=== PATIENT | male | born 1940 | race Caucasian/White ===

== ENCOUNTER 2024-09-04 16:11 | Emergency (ER) | payer OTHER ==
[~2024-09-04] VITALS: Ht 177.8 cm; Wt 74.2 kg
[~2024-09-04 16:11] MED LIST: FINA5TAB4 PO; HYDR12.59 PO; POTA-264 PO; RANI150C11 PO; TERA1CAP52 PO; [UNRECOGNIZED DRUG - CODE] PO; lozartan
--- NOTE | 2024-09-04 17:37 | ECG ---
[facility] Test Date: 2024-09-04 Test Time: 17:32:53 Pat Name: JEAN HORTON Department: ER Room: Gender: M Bit Setter: SENTHIL : 1940 Requested By: FRANK FERRARI Order Number: [id number] Reading MD: Landon Cameron Measurements Intervals [place] Rate: 51 P: 0 CO: 0 QRS: -74 QRSD: 182 T: 90 QT: 528 QTc: 487 Interpretive Statements AV dissociation Nonspecific IVCD with LAD LVH with secondary repolarization abnormality Electronically Signed On 09-05-2024 9:22:11 PDT by Landon Cameron Please click the below link to view image of tracing.
[2024-09-04 18:04] LABS: Basophils # (auto) 0.1 10 ^3/uL (0-0.2); Basophils % (auto) 1.1 % (0.0-2.0); Eosinophils # (auto) 0.1 10 ^3/uL (0-0.8); Eosinophils % (auto) 1.3 % (0.0-7.0); Hematocrit 37.6 % (41.0-53.0); Hemoglobin 12.5 g/dL (13.5-17.5); Lymphocytes # (auto) 1.1 10 ^3/uL (0.4-5.4); Lymphocytes % (auto) 25.1 % (10.0-50.0); Mean Corpuscular Hemoglobin 32.4 pg (28.0-32.0); Mean Corpuscular Hgb Conc. 33.3 g/dL (32.0-36.0); Mean Corpuscular Volume 97.4 fL (80.0-100.0); Monocytes # (auto) 0.3 10 ^3/uL (0-1.3); Monocytes % (auto) 6.8 % (0.0-12.0); Neutrophils % (auto) 65.7 % (37.0-80.0); Nucleated Red Blood Cells % 0.1 %; Platelet Count (auto) 200 10^3/uL (140-450); Red Blood Cells 3.86 10^6/uL (4.5-5.90); Red Cell Distribution Width 14.3 % (11.8-14.3); White Blood Cell 4.6 10^3/uL (4.4-10.8)
[2024-09-04 18:14] VITALS: BP 127/59; PULSE 66; RESP 18; TEMP 98.7; O2SAT 97
--- NOTE | 2024-09-04 18:18 | ED.PDOC ---
HPI Comments 83y M who presents to the ED for chief complaint of low blood pressure. - per pt , pt has been to urgent care at [facility] earlier this AM and was referred to the ED for evaluation for low blood pressure. They are not sure exactly what the blood pressure was at the clinic however his blood pressure is normal here in triage. - pt in the ED, after checking vitals has noted stable vitals with BP of 127/59 in the ED, - per pt , she noticed pt has been acting abnormal since 1430 today and has been not himself - pt in the ED, has noted history of dementia but states this behavior is baseline for pt according to spouse - pt states pt has been to urgent care 5x in the past for hypotensive episodes - pt in the ED, after evaluation, has no noted deficits noted PMH: HTN, dementia, BPH PSH: pacemaker allergies: denies medications: unknown social history: denies ETOH use, denies tobacco use, denies drug use HPI: Poor Historian. Past Medical History: Past Surgical History: REVIEW OF SYSTEMS: CONSTITUTIONAL: Denies acute: fever, diaphoresis, chills, HEAD: Denies acute: headache, photophobia Eyes: Denies acute: Double vision, vision loss, eye pain, eye discharge. EARS: Denies acute: tinnitus, hearing loss, ear discharge, ear pain, THROAT: Denies acute: sore throat, swelling, difficulty swallowing , pain with swallowing, change in voice. NECK: Denies acute: neck pain, neck swelling, stiff neck. HEART: Denies acute : chest pain, palpitations, LUNGS: Denies acute: SOB, wheezing, cough, hemoptysis ABDOMEN: Denies acute: abdominal pain, Nausea, Vomiting, diarrhea, melena , hematemesis, hematochezia SKIN: Denies acute: rash, redness, lesions, itchiness. EXTREMITIES: Denies acute: calf pain, numbness, tingling, weakness, denies pain in extremity. Denies acute: Low back pain. Neuro: Denies acute: focal neurological deficit, motor or sensory focal neurological deficit, tremors, seizure like activity, confusion, dizziness, change in mental status, loss of bowel or bladder function, cauda equina like symptoms. : Denies acute: dysuria, hematuria, flank pain, increase in urinary frequency. PSYCH: Denies acute: hallucination, suicidal ideation, homicidal ideation. PHYSICAL EXAM: General: -----no---acute distress, awake and alert. Head: normocephalic, atraumatic. Neck: supple, trachea is midline, no swelling. Throat: Normal phonation. Eyes:, no erythema, no purulent discharge, no proptosis, no icterus. Heart: regular rate, regular rhythm, no significant murmur appreciated. Lungs: no apparent respiratory distress, Able to speak in full sentences. No wheezing, no rhonchi, no crackles. No stridors Clear to auscultation bilaterally. Abdomen: non tender to palpation, non distended, soft, no guarding, no rebound, + bowel sounds. Neuro: Awake, Alert, oriented to name, self, situation, follows commands at b aseline dementia GCS=15. At baseline dementia Speech is normal. Skin: no petechia, no purpura, no cyanosis, non-pale, not jaundice. Lower extremities: --no - Pitting edema no deformity, no focal swelling, no calf TTP. Makes eye contact. moves all four extremities. Face: no apparent facial droop. Stroke: finger to nose cerebellar testing is intact. No pronator drift. Symmetrical painter helper spray muscle strength b/l PERRLA, EOM-I CN 2-12 are grossly intact, No nystagmus. No nuchal rigidity, Kernig's sign, Brudzinski's sign, no meningeal signs. ED COURSE: Chief Complaint: Low Blood Pressure Time Seen by MD: 18:17 Primary Care Provider: Jaylen Reviewed Notes: Medications, Allergies Allergies: Coded Allergies: NO KNOWN ALLERGIES (Unverified , 05/11/13) Home Meds Reported Medications Terazosin Hcl (Terazosin Hcl) 1 Mg Cap, 1 MG PO, CAP 05/11/13 Finasteride (Finasteride) 5 Mg Tab, 5 MG PO, TAB 05/11/13 [lozartan] No Conflict Check 05/11/13 Potassium Chloride (K-Tabs) 10 Meq Tab, 10 MEQ PO, TAB 05/11/13 Hydrochlorothiazide (Hydrochlorothiazide) 12.5 Mg Cap, 12.5 MG PO, CAP 05/11/13 Ranitidine Hcl (Ranitidine Hcl) 150 Mg Cap, 150 MG PO, CAP 05/11/13 Ergocalciferol (Ergocalciferol) 8,000 Mg/Ml Laura, 8000 MG PO 05/11/13 Information Source: Patient, Spouse Mode of Arrival: Wheelchair Brought in by: spouse Past Medical History PAST MEDICAL HISTORY: Cancer, GERD, HTN Family History Family History: No family hx of Cancer, No family hx of Heart nayana Social History Smoker: Non-Smoker Alcohol: Occasionally Drugs: Denies Drug Use Lives In: Home Was a procedure done? Was a procedure done?: No CP Differential Dx Differential Diagnosis: Other (Includes but not limited to thyroid disease, encephalopathy, electrolyte abnormality, sepsis, infection, intracranial pathology, drug adverse effects, arrhythmia, kidney insufficiency, ACS, CVA, malignancy, anemia), N/A X-Ray, Labs, Meds, VS Vital Signs Date Time Temp Pulse Resp B/P (MAP) Pulse Ox O2 Delivery O2 Flow Rate FiO2 09/04/24 18:14 98.7 66 18 127/59 (81) 97 98.7 09/04/24 17:32 51 Lab Test 09/04/24 17:52 09/04/24 17:36 Range/Units White Blood Count 4.6 4.4-10.8 10^3/uL Red Blood Count 3.86 L 4.5-5.90 10^6/uL Hemoglobin 12.5 L 13.5-17.5 g/dL Hematocrit 37.6 L 41.0-53.0 % Mean Corpuscular Volume 97.4 80.0-100.0 fL Mean Corpuscular Hemoglobin 32.4 H 28.0-32.0 pg Mean Corpuscular Hemoglobin Concent 33.3 32.0-36.0 g/dL Red Cell Distribution Width 14.3 11.8-14.3 % Platelet Count 200 140-450 10^3/uL Mean Platelet Volume 7.3 6.9-10.8 fL Neutrophils (%) (Auto) 65.7 37.0-80.0 % Lymphocytes (%) (Auto) 25.1 10.0-50.0 % Monocytes (%) (Auto) 6.8 0.0-12.0 % Eosinophils (%) (Auto) 1.3 0.0-7.0 % Basophils (%) (Auto) 1.1 0.0-2.0 % Neutrophils # (Auto) 3.0 1.6-8.6 10 ^3/uL Lymphocytes # (Auto) 1.1 0.4-5.4 10 ^3/uL Monocytes # (Auto) 0.3 0-1.3 10 ^3/uL Eosinophils # (Auto) 0.1 0-0.8 10 ^3/uL Basophils # (Auto) 0.1 0-0.2 10 ^3/uL Nucleated Red Blood Cells 0.1 % Sodium Level 142 136-145 mmol/L Potassium Level 4.5 3.5-5.1 mmol/L Chloride Level 104 98-107 mmol/L Carbon Dioxide Level 30 20-31 mmol/L Anion Gap 8 5-15 Blood Urea Nitrogen 20 9-23 mg/dL Creatinine 1.00 0.700-1.30 mg/dL Glomerular Filtration Rate Calc 74 >90 mL/min BUN/Creatinine Ratio 20.0 10.0-20.0 Serum Glucose 103 74-106 mg/dL Lactic Acid Level 1.5 0.4-2.0 mmol/L Calcium Level 10.0 8.7-10.4 mg/dL Magnesium Level 2.1 1.6-2.6 mg/dL Total Bilirubin 1.3 H 0.2-1.0 mg/dL Aspartate Amino Transferase (AST) 29 13-40 U/L Alanine Aminotransferase (ALT) 21 7-40 U/L Alkaline Phosphatase 79 46-116 U/L Troponin I High Sensitivity 6 </=54 ng/L Total Protein 7.1 5.7-8.2 g/dL Albumin 4.5 3.2-4.8 g/dL POC Glucose 102 70-106 mg/dl [place] [address] Ph: [phone] DIAGNOSTIC IMAGING Diagnostic Imaging Report : [id number] Signed PATIENT: JEAN HORTON ACCT: [id number] UNIT: [id number] : 1940 LOC: ER ROOM / BED: / AGE / SEX: 83 / M ADM STATUS: REG ER SERVICE [id number] ORDERING PHYSICIAN: FRANK FERRARI DO PROCEDURE(s): HWOCT - HEAD WITHOUT CONTRAST REASON: h/o Low BP, ORDER NUMBER(s): [id number], ACCESSION NUMBER(s): [id number] EXAM: CT HEAD WITHOUT CONTRAST INDICATION: h/o Low BP, TECHNIQUE: CT of the head without intravenous contrast. Radiation Dose Information: CT Dose: CTDI volume is 33.06 mGy. Dose-length product is 646.8 mGy*cm The dose indicators for CT are the volume Computed Tomography (CT) Dose Index (CTDIvol) and the Dose Length Product (DLP), and are measured in units of mGy a nd mGy-cm, respectively. These indicators are not patient dose, but values generated from the CT scanner acquisition factors. The report includes radiation exposure data for exposures received during this examination. COMPARISON: None FINDINGS: There is no evidence of acute intracranial hemorrhage, extra-axial collection, mass effect, midline shift, herniation or hydrocephalus. The ventricles, sulci and cisterns are age appropriate. The abdul-white differentiation is intact. Patchy periventricular and subcortical white matter hypoattenuation is nonspecific but may be related to small vessel ischemic disease. The visualized paranasal sinuses and mastoid air cells are clear. The surrounding soft tissues and osseous structures are unremarkable. IMPRESSION: 1. No acute intracranial hemorrhage 2. No CT findings of territorial ischemia. ATED BY: JUAN DIEGO ZAIDI Jr., DO DICTATED DATE/TIME: 09/04/241839 SIGNED BY: JUAN DIEGO ZAIDI Jr., SIGNED DATE/TIME: 09/04/241839 CC: [place] [id number] Ph: [phone] DIAGNOSTIC IMAGING Diagnostic Imaging Report : [id number] Signed PATIENT: JEAN HORTON ACCT: [id number] UNIT: [id number] : 1940 LOC: ER ROOM / BED: / AGE / SEX: 83 / M ADM STATUS: REG ER SERVICE [id number] ORDERING PHYSICIAN: FRANK FERRARI DO PROCEDURE(s): CXRP - CHEST PORTABLE REASON: h/o Low BP ORDER NUMBER(s): [id number], ACCESSION NUMBER(s): [id number] CHEST RADIOGRAPH Indication: h/o Low BP Technique: Single frontal view of the chest was obtained Comparison: None FINDINGS: Patient has a bipolar pacemaker with leads in the right atrium and right ventricle and normal position. Lungs are well expanded. Lung markings are suggestive of chronic changes. Heart size is unremarkable mediastinal contours are normal IMPRESSION: Possible chronic lung disease. Follow-up CT examination of the chest is suggested ATED BY: DANIS KUMARI MD DICTATED DATE/TIME: 09/04/241842 SIGNED BY: DANIS KUMARI MD SIGNED DATE/TIME: 09/04/241842 CC: Time of 1ST Reevaluation: 00:00 Reevaluation 1ST: Unchanged Patient Education/Counseling: Diagnosis, Treatment Family Education/Counseling: Diagnosis, Treatment Comments Patient presented with the above HPI.---hypotensive episode and altered mental status---workup was initiated. patient was found with the above mentioned diagnosis. the following medications were ordered: please refer to order lists of meds and tests obtained by myself Dr. Ferrari. Patient ED course and VS have been stabilized. Patient has been reassessed in the ED and remained in a stable condition. Pertinent incidental findings were discussed with the patient and/or family. Patient/family voices understanding and is agreeable with plan. Patient has been observed in the ED adequate length of time to insure improvement/stability. Escalation of care considered: Consideration of escalation to observation or admission Patient was ADMITTED to the medicine team for further evaluation and treatment of their presentation. However requested that did leave against medical advice. She said she will return to the ED of the need to. All the reports of any imaging studies that were ordered by myself were reviewed by myself. Departure 1 Departure Time of Disposition: 18:32 Impression: Primary Impression: Hypotensive episode Additional Impressions: Stroke-like symptoms Left against medical advice Disposition: 07 LEFT AGAINST MEDICAL ADVICE Condition: Stable Additional Instructions: Left against medical advice Discharged With: Self, Spouse Critical Care Note Critical Care Time?: Yes (35 min-critical care time only) Heart Score Heart Score: Heart Score Response (Comments) Value History Moderate Suspicious 1 EKG Normal 0 Age >65 2 Risk Factors 1 or 2 risk factors 1 Troponin Normal limit 0 Total 4 I personally scribed for FRANK FERRARI DO ([facility]) on 09/04/24 at 18:18. Electronically submitted by Yanick Briones ([facility] I personally scribed for FRANK FERRARI DO ([facility]) on 09/04/24 at 18:22. Electronically submitted by Yanick Briones ([facility]). I personally scribed for FRANK FERRARI DO ([facility]) on 09/04/24 at 21:06. Electronically submitted by Yanick Briones ([facility]). FRANK FERRARI DO September 04, 2024 18:18
[2024-09-04 18:21] LABS: Alanine Aminotransferase 21 U/L (7-40); Albumin 4.5 g/dL (3.2-4.8); Alkaline Phosphatase 79 U/L (46-116); Anion Gap 8 (5-15); Aspartate Aminotransferase 29 U/L (13-40); Blood Urea Nitrogen 20 mg/dL (9-23); Carbon Dioxide 30 mmol/L (20-31); Chloride 104 mmol/L (98-107); Glucose 103 mg/dL (74-106); Magnesium 2.1 mg/dL (1.6-2.6); Potassium 4.5 mmol/L (3.5-5.1); Sodium 142 mmol/L (136-145); Total Protein 7.1 g/dL (5.7-8.2)
[2024-09-04 18:22] LABS: Bilirubin, Total 1.3 mg/dL (0.2-1.0)
--- NOTE | 2024-09-04 18:43 | DVH ---
EXAM: CT HEAD WITHOUT CONTRAST INDICATION: h/o Low BP, TECHNIQUE: CT of the head without intravenous contrast. Radiation Dose Information: CT Dose: CTDI volume is 33.06 mGy. Dose-length product is 646.8 mGy*cm The dose indicators for CT are the volume Computed Tomography (CT) Dose Index (CTDIvol) and the Dose Length Product (DLP), and are measured in units of mGy and mGy-cm, respectively. These indicators are not patient dose, but values generated from the CT scanner acquisition factors. The report includes radiation exposure data for exposures received during this examination. COMPARISON: None FINDINGS: There is no evidence of acute intracranial hemorrhage, extra-axial collection, mass effect, midline s hift, herniation or hydrocephalus. The ventricles, sulci and cisterns are age appropriate. The abdul-white differentiation is intact. Patchy periventricular and subcortical white matter hypoattenuation is nonspecific but may be related to small vessel ischemic disease. The visualized paranasal sinuses and mastoid air cells are clear. The surrounding soft tissues and osseous structures are unremarkable. IMPRESSION: 1. No acute intracranial hemorrhage 2. No CT findings of territorial ischemia.
--- NOTE | 2024-09-04 18:45 | DVH ---
CHEST RADIOGRAPH Indication: h/o Low BP Technique: Single frontal view of the chest was obtained Comparison: None FINDINGS: Patient has a bipolar pacemaker with leads in the right atrium and right ventricle and normal positio n. Lungs are well expanded. Lung markings are suggestive of chronic changes. Heart size is unremarkable mediastinal contours are normal IMPRESSION: Possible chronic lung disease. Follow-up CT examination of the chest is suggested
== END 2024-09-04 18:32 | disposition left against medical advice (07) ==
LOC: ER 16:11
DX: I95.9 Hypotension, unspecified (principal); I63.9 Cerebral infarction, unspecified; R07.9 Chest pain, unspecified; I10 Essential (primary) hypertension; K21.9 Gastro-esophageal reflux disease without esophagitis; Z79.899 Other long term (current) drug therapy; Z95.0 Presence of cardiac pacemaker
CPT/HCPCS: 36415; 70450; 71045; 80053; 82947; 82962; 83605; 83735; 84484; 85025; 93005; 99291